=== PATIENT | male | born 1955 | race Hispanic/Latino ===

== ENCOUNTER 2018-11-24 17:48 | Inpatient (IN) | payer OTHER ==
--- NOTE | 2018-11-24 18:48 | ED PDOC ---
HPI: Chest Pain Time Seen by Provider: 11/24/18 18:02 Chief Complaint (Nursing): Chest Pain Additional Complaint(s): 63 year old male with no significant past medical history presents to the ED w ith midsternal chest tightness for several hours. Patient reports that he has been found to be hypertensive on previous visits, but is not on any hypertension medications. He states pain is nonradiating and not associated with shortness of breath or diaphoresis. Patient has a history of anxiety, but reports current symptoms feel different. His father and uncle both of heart attack in their early 60s. Patient denies any toxic habits. PMD: none provided Past Medical History Reviewed: Historical Data, Nursing Documentation, Vital Signs Vital Signs: Last Vital Signs Temp 98.4 F 11/24/18 17:53 Pulse 85 11/24/18 17:53 Resp 20 11/24/18 17:53 BP 170/97 H 11/24/18 18:20 Pulse Ox 98 11/24/18 17:53 - Medical History PMH: Anxiety Denies: Chronic Kidney Disease - Family History Family History: States: [place] - Home Medications Home Medications: Ambulatory Orders Medication Instructions Recorded No Known Home Med 11/24/18 - Allergies Allergies/Adverse Reactions: Allergies Allergy/AdvReac Type Severity Reaction Status Date / Time No Known Allergies Allergy Verified 11/24/18 17:52 Review of Systems ROS Statement: Except As Marked, All Systems Reviewed And Found Negative Constitutional: Negative for: Sweats Cardiovascular: Positive for: Chest Pain Respiratory: Negative for: Shortness of Breath Physical Exam - Reviewed Nursing Documentation Reviewed: Yes Vital Signs Reviewed: Yes - Physical Exam Appears: Positive for: Non-toxic, No Acute Distress Head Exam: Positive for: ATRAUMATIC, NORMOCEPHALIC Skin: Positive for: Normal Color, Warm, Dry Eye Exam: Positive for: EOMI, Normal appearance, PERRL Neck: Positive for: Normal Cardiovascular/Chest: Positive for: Regular Rate, Rhythm. Negative for: Murmur Respiratory: Positive for: Normal Breath Sounds. Negative for: Respiratory Distress Gastrointestinal/Abdominal: Positive for: Normal Exam, Soft. Negative for: Te nderness Back: Positive for: Normal Inspection Extremity: Positive for: Normal ROM (upper and lower). Negative for: Pedal Edema, Deformity Neurological/Psych: Positive for: Awake, Alert, Oriented (x3) - Laboratory Results Result Diagrams: 11/25/18 04:30 11/25/18 04:30 - ECG ECG Rhythm: Positive for: Sinus Rhythm (normal), Premature Ventricular Contraction (Runs of PVC seen on filter press tender head ) Rate: 83 O2 Sat by Pulse Oximetry: 98 (RA) Pulse Ox Interpretation: Normal Medical Decision Making Medical Decision Making: Time: 1819 Workup for chest pain with PVC Plan: --Labs with troponin --CXR --reassess patient Time: 1899 --Patient signed out to Dr. Armijo by this provider pending Cardiac workup. Scribe Attestation: Documented by Nika Saunders, acting as a scribe for Mecca Trevizo MD. Provider Scribe Attestation: All medical record entries made by the Scribe were at my direction and personally dictated by me. I have reviewed the chart and agree that the record accurately reflects my personal performance of the history, physical exam, medical decision making, and the department course for this patient. I have also personally directed, reviewed, and agree with the discharge instructions and disposition. Disposition - Clinical Impression Clinical Impression: Chest pain - Disposition Disposition: Transfer of Care Disposition Time: 19:00 Condition: FAIR
[2018-11-24 18:54] LABS: VENOUS BLOOD GAS BASE EXCESS 1.7 mmol/L (0.0-2.0); VENOUS BLOOD GAS PCO2 42 mmHg (40-60); VENOUS BLOOD GAS PO2 37 mm/Hg (30-55); VENOUS BLOOD PH 7.41 (7.32-7.43)
[2018-11-24 18:55] LABS: BASO # 0.1 K/uL (0.0-0.2); BASO % 0.6 % (0.0-2.0); EOS # 0.1 K/uL (0.0-0.7); EOS % 0.8 % (0.0-4.0); HEMOGLOBIN 16.4 g/dL (12.0-18.0); LYMPH % 34.5 % (20.0-40.0); MEAN CELL VOLUME 91.4 fl (80.0-94.0); MEAN CORPUSCULAR HEMOGLOBIN 31.3 pg (27.0-31.0); MEAN CORPUSCULAR HGB CONC 34.3 g/dL (33.0-37.0); MEAN PLATELET VOLUME 9.7 fl (7.2-11.7); MONO # 0.6 K/uL (0.0-0.8); MONO % 7.2 % (0.0-10.0); NEUT % 56.9 % (50.0-75.0); NRBC % 0.1 % (0.0-0.0); RBC 5.24 Mil/uL (4.40-5.90); RED CELL DISTRIBUTION WIDTH 13.8 % (11.5-14.5); WHITE BLOOD COUNT 8.8 K/uL (4.8-10.8)
[2018-11-24 18:56] LABS: INR 0.9; PROTHROMBIN TIME 10.2 Seconds (9.8-13.1)
[2018-11-24 18:58] LABS: PARTIAL THROMBOPLASTIN TIME 32.9 Seconds (25.6-37.1)
[2018-11-24 19:07] LABS: BLOOD UREA NITROGEN 12 mg/dl (9-20); CALCIUM 9.7 mg/dL (8.4-10.2); GFR NON-AFRICAN AMERICAN > 60
--- NOTE | 2018-11-24 19:11 | ED PDOC ---
- Laboratory Results Result Diagrams: 11/24/18 18:47 11/24/18 18:47 Lab Results: pO2 37 mm/Hg (30-55) 11/24/18 18:42 VBG pH 7.41 (7.32-7.43) 11/24/18 18:42 VBG pCO2 42 mmHg (40-60) 11/24/18 18:42 VBG HCO3 25.5 mmol/L 11/24/18 18:42 VBG Total CO2 27.9 mmol/L (22-28) 11/24/18 18:42 VBG O2 Sat (Calc) 78.4 % (40-65) H 11/24/18 18:42 VBG Base Excess 1.7 mmol/L (0.0-2.0) 11/24/18 18:42 VBG Potassium 4.2 mmol/L (3.6-5.2) 11/24/18 18:42 Sodium 138.0 mmol/L (132-148) 11/24/18 18:42 Chloride 107.0 mmol/L (98-107) 11/24/18 18:42 Glucose 101 mg/dL (75-110) 11/24/18 18:42 Lactate 0.9 mmol/L (0.7-2.1) 11/24/18 18:42 FiO2 21.0 % 11/24/18 18:42 PT 10.2 Seconds (9.8-13.1) 11/24/18 18:47 INR 0.9 11/24/18 18:47 APTT 32.9 Seconds (25.6-37.1) 11/24/18 18:47 - ECG O2 Sat by Pulse Oximetry: 98 (RA) Medical Decision Making Medical Decision Making: Time: 1899 --Patient signed out to this provider by Dr. Trevizo, pending Cardiac workup. Time: 1944 --Patient re-evaluated at bedside, states he's feeling much improved. States he took ASA 162mg today. Given family history of DC in 50s/60s, age, and symptoms, will place in OBS Tele for continuous cardiac monitoring, serial EKGs, and further workup as warranted by inpatient team. Dr. Branch aware. Scribe Attestation: Documented by Nika Saunders, acting as a scribe for Alfredo Armijo MD. Provider Scribe Attestation: All medical record entries made by the Scribe were at my direction and personally dictated by me. I have reviewed the chart and agree that the record accurately reflects my personal performance of the history, physical exam, medical decision making, and the department course for this patient. I have also personally directed, reviewed, and agree with the discharge instructions and disposition. Disposition - Clinical Impression Clinical Impression: Chest pain - POA Present On Arrival: None - Disposition Disposition: Hospitalized as Observation Patient Disposition Time: 19:45 Condition: FAIR Forms: [employer] (Gabonese)
--- NOTE | 2018-11-24 19:59 | RAD ---
Date of service: 11/24/2018 HISTORY: possible admission COMPARISON: No prior. FINDINGS: LUNGS: No active pulmonary disease. PLEURA: No significant pleural effusion identified, no pneumothorax apparent. CARDIOVASCULAR: No aortic atherosclerotic calcification present. Normal cardiac size. No pulmonary vascular congestion. OSSEOUS STRUCTURES: No significant abnormalities. VISUALIZED UPPER ABDOMEN: Normal. OTHER FINDINGS: None. IMPRESSION: No active disease.
--- NOTE | 2018-11-24 23:22 | CP.PCM.PCO ---
Physician Communication Note - Physician Communication Note Physician Communication Note: EKG on floor. Pt has intermittent PVCs
[2018-11-25 04:54] VITALS: BMI 24.1
[2018-11-25 06:02] LABS: BASO % 0.5 % (0.0-2.0); EOS # 0.1 K/uL (0.0-0.7); EOS % 1.1 % (0.0-4.0); HEMOGLOBIN 15.5 g/dL (12.0-18.0); LYMPH # 3.7 K/uL (1.0-4.3); LYMPH % 49.1 % (20.0-40.0); MEAN CELL VOLUME 92.1 fl (80.0-94.0); MEAN CORPUSCULAR HEMOGLOBIN 31.5 pg (27.0-31.0); MEAN CORPUSCULAR HGB CONC 34.2 g/dL (33.0-37.0); MEAN PLATELET VOLUME 9.9 fl (7.2-11.7); MONO # 0.6 K/uL (0.0-0.8); MONO % 8.3 % (0.0-10.0); NEUT # 3.1 K/uL (1.8-7.0); NRBC % 0.2 % (0.0-0.0); RBC 4.91 Mil/uL (4.40-5.90); RED CELL DISTRIBUTION WIDTH 13.8 % (11.5-14.5); WHITE BLOOD COUNT 7.4 K/uL (4.8-10.8)
[2018-11-25 06:20] LABS: ALB/GLOB RATIO 1.5 (1.0-2.1); ALBUMIN 3.8 g/dL (3.5-5.0); ALT/SGPT 31 U/L (21-72); AST/SGOT 22 U/L (17-59); BLOOD UREA NITROGEN 12 mg/dl (9-20); CALCIUM 9.2 mg/dL (8.4-10.2); GFR NON-AFRICAN AMERICAN > 60; HDL CHOLESTEROL 42 MG/DL (30-70)
[2018-11-25 06:31] LABS: LDL CHOLESTEROL 98 mg/dL (0-129)
[2018-11-25] MEDS: Enoxaparin 40 mg Syringe SC SCH (08:42)
--- NOTE | 2018-11-25 10:26 | HP ---
CHIEF COMPLAINT: Chest pain. HISTORY OF PRESENT ILLNESS: This is 63-year-old male, known case of anxiety, was having chest pain, so the patient was taken to the emergency room and was admitted for further management. REVIEW OF SYSTEMS: Positive at the time of admission of his chest pain. Review of system at this time is negative for arthritis, dizziness, syncope, loss of consciousness, chest pain, shortness of breath, nausea, vomiting, diarrhea, and constipation, any knee joint or extremity pain. Review of systems of all other organ system is unremarkable. PAST MEDICAL HISTORY: Significant for anxiety. PAST SURGICAL HISTORY: Unremarkable. PERSONAL HISTORY: The patient is currently nonsmoker. Nondrinker. No substance abuse. MEDICATIONS: The patient is on no medication. ALLERGIES: THE PATIENT IS NOT ALLERGIC TO ANY MEDICATIONS. FAMILY HISTORY: Noncontributory. PHYSICAL EXAMINATION: GENERAL: Well-built, well-nourished 63-year-old male, in no acute distress. VITAL SIGNS: Temperature 97.5, pulse 63, respiration 18, blood pressure 129/80, saturation is 96%. HEENT: Pupils are reacting to light. No JVD. No thyromegaly. No lymphadenopathy. No nystagmus. Normocephalic, atraumatic skull. HEART: S1 and S2, normal and regular. No significant murmur, gallop, or rub is heard. LUNGS: Shows good bilateral air exchange. No rales or rhonchi. ABDOMEN: Soft and nontender. No organomegaly. No fluid. Bowel sounds are plus and normal. EXTREMITY: No edema. No calf swelling. No tenderness. No acute ischemia. CENTRAL NERVOUS SYSTEM: Essentially unchanged and there is no sign of any acute gross focal motor or sensory or neurological deficits. DIAGNOSTIC DATA: Available diagnostic data reviewed. WBC 7.4, hemoglobin 15.5, hematocrit 45.6, platelets 137. Sodium 141, potassium 4.2, chloride 108, bicarb 25, BUN 12, creatinine 0.8. SMA-12 is unremarkable. EKG does not reveal any acute ST-T changes. Chest x-ray is clear. ADMITTING IMPRESSION AND PLAN: Chest pain, rule out acute coronary artery syndrome, anxiety. Plan as ordered. Case and plan discussed with patient. Gabe Branch MD
--- NOTE | 2018-11-25 11:20 | CP.PCM.CON ---
History of Present Illness - History of Present Illness History of Present Illness: PT ADMITTED WITH CP EPISODE X 1. PT STATES THAT HE STARTED HAVING CP YESTERDAY WHILE AT HOME. HE DOESN'T RECALL WHAT INCITED THE PAIN. THIS CAME ON GRADUALLY AND LASTED SEVERAL HOURS. PT FELT PALPITATIONS AND DIZZINESS DURING THIS TIME. NO TREMORS, NO NAUSEA, NO ABD PAIN, NO SOB. PT STATES THE CP WAS PRESSURE LIKE, SEVERE 8/10 AT MAX, SUBSTERNAL, NONRADIATING, NOT ASSOCIATED WITH ANY EXAC. OR ALLEVIATING FACTORS. PT HAS A HX OF HTN WHICH HE HAS NOT SOUGHT TREATMENT. ALSO HE HAS A STRONG FAM HX OF CAD AND IS A TOBACCO USER. Review of Systems - Constitutional Constitutional: As Per HPI. absent: Anorexia, Chills, Daytime Sleepiness, Excessive Sweating, Fatigue, Fever, Frequent Falls, Headache, Increased Appetite, Lethargy, Malaise, Night Sweats, Snoring, Sleep Apnea, Weight Gain, Weight Loss, Weakness, Other - EENT Eyes: As Per HPI. absent: Blind Spots, Blurred Vision, Change in Vision, Decreased Night Vision, Diplopia, Discharge, Dry Eye, Exophthalmos, Floaters, Irritation, Itchy Eyes, Loss of Peripheral Vision, Pain, Photophobia, Requires Corrective Lenses, Sees Flashes, Spots in Vision, Tunnel Vision, Other Visual Disturbances, Loss of Vision, Other Ears: As Per HPI. absent: Decreased Hearing, Ear Discharge, Ear Pain, Tinnitus, Abnormal Hearing, Disequilibrium, Dizziness, Other Nose/Mouth/Throat: As Per HPI. absent: Epistaxis, Nasal Congestion, Nasal Discharge, Nasal Obstruction, Nasal Trauma, Nose Pain, Post Nasal Drip, Sinus Pain, Sinus Pressure, Bleeding Gums, Change in Voice, Dental Pain, Dry Mouth, Dysphagia, Halitosis, Hoarsness, Lip Swelling, Mouth Lesions, Mouth Pain, Odynophagia, Sore Throat, Throat Swelling, Tongue Swelling, Facial Pain, Neck Pain, Neck Mass, Other - Cardiovascular Cardiovascular: As Per HPI, Chest Pain, Lightheadedness, Palpitations. absent: Acrocyanosis, Chest Pain at Rest, Chest Pain with Activity, Claudication, Diaphoresis, Dyspnea, Dyspnea on Exertion, Edema, Irregular Heart Rhythm, Pain Radiating to Arm/Neck/Jaw, Leg Edema, Leg Ulcers, Orthopnea, Paroxysmal Nocturnal Dyspnea, Pedal Edema, Radiating Pain, Rapid Heart Rate, Slow Heart Rate, Syncope, Other - Respiratory Respiratory: As Per HPI. absent: Cough, Dyspnea, Hemoptysis, Dyspnea on Exertion, Wheezing, Snoring, Stridor, Pain on Inspiration, Chest Congestion, Excessive Mucous Production, Change in Mucous Color, Pain with Coughing, Other - Gastrointestinal Gastrointestinal: As Per HPI. absent: Abdominal Pain, Belching, Bloating, Change in Bowel Habits, Change in Stool Character, Coffee Ground Emesis, Constipation, Cramping, Diarrhea, Dyspepsia, Dysphagia, Early Satiety, Excessive Flatus, Fecal Incontinence, Heartburn, Hematemesis, Hematochezia, Loose Stools, Melena, Nausea, Odynophagia, Temesmus, Vomiting, Other - Genitourinary Genitourinary: As Per HPI. absent: Change in Urinary Stream, Difficulty Urinating, Dysuria, Flank Pain, Hematuria, Pyuria, Nocturia, Urinary Incontinence, Urinary Frequency, Urinary Hesitance, Urinary Urgency, Voiding Freq/Small Amts, Freq UTI, Hx Renal/Bladder Calculi, Hx /Renal Surgery, Bladder Distension, Other - Reproductive: Male Reproductive:Male: As Per HPI - Musculoskeletal Musculoskeletal: As Per HPI. absent: Abnormal Gait, Arthralgias, Atrophy, Back Pain, Deformity, Joint Swelling, Limited Range of Motion, Loss of Height, Muscle Cramps, Muscle Weakness, Myalgias, Neck Pain, Numbness, Radiating Pain into Limb, Stiffness, Tingling, Other - Integumentary Integumentary: As Per HPI. absent: Acne, Alopecia, Bleeding Lesions, Change in Hair, Change in Nails, Change in Pigmentation, Changing Lesions, Dry Skin, Erythema, Furuncle, Hirsutism, Lesions, New Lesions, Non-Healing Lesions, Photosensitivity, Pruritus, Rash, Skin Pain, Skin Ulcer, Sores, Striae, Swelling, Unusual Bruising, Wounds, Jaundice, Other - Neurological Neurological: As Per HPI. absent: Abnormal Gait, Abnormal Hearing, Abnormal Movements, Abnormal Speech, Behavioral Changes, Burning Sensations, Confusion, Convulsions, Disequilibrium, Dizziness, Numbness, Focal Weakness, Frequent Falls, Headaches, Lack of Coordination, Loss of Vision, Memory Loss, Paresthesias, Radicular Pain, Restless Legs, Sensory Deficit, Syncope, Tingling, Tremor, Vertigo, Weakness, Other Visual Disturbances, Other - Psychiatric Psychiatric: As Per HPI. absent: Abnormal Sleep Pattern, Anhedonia, Anxiety, Auditory Hallucinations, Behavioral Changes, Change in Appetite, Change in Libido, Confusion, Depression, Difficulty Concentrating, Hallucinations, Homicidal Ideation, Hopelessness, Irritability, Memory Loss, Mood Swings, Panic Attacks, Paranoia, Suicidal Ideation, Visual Hallucinations, Tactile Hallucinations, Other - Endocrine Endocrine: As Per HPI. absent: Change in Body Appearance, Change in Libido, Cold Intolorance, Deepening of Voice, Excessive Sweating, Fatigue, Flushing, Heat Intolorance, Increase in Ring/Shoe/Hat Size, Palpitations, Polydipsia, Polyphagia, Polyuria, Other - Hematologic/Lymphatic Hematologic: As Per HPI. absent: Easy Bleeding, Easy Bruising, Lymphadenopathy, Other Past Patient History - Past Medical History & Family History Past Medical History?: No - Past Social History Smoking Status: Current Some Days Smoker Chewing Tobacco Use: No Cigar Use: No Alcohol: > 2 Drinks/Day Drugs: Denies Home Situation {Lives}: Alone Domestic Violence: Negative - CARDIAC Hx Cardiac Disorders: No - PULMONARY Hx Respiratory Disorders: No - NEUROLOGICAL Hx Neurological Disorder: No - HEENT Hx HEENT Problems: No - RENAL Hx Chronic Kidney Disease: No - ENDOCRINE/METABOLIC Hx Endocrine Disorders: No - HEMATOLOGICAL/ONCOLOGICAL Hx Blood Disorders: No Hx AIDS: No Hx Human Immunodeficiency Virus (HIV): No - INTEGUMENTARY Hx Dermatological Problems: No - MUSCULOSKELETAL/RHEUMATOLOGICAL Hx Musculoskeletal Disorders: No Hx Falls: No - GASTROINTESTINAL Hx Gastrointestinal Disorders: No - GENITOURINARY/GYNECOLOGICAL Hx Genitourinary Disorders: No - PSYCHIATRIC Hx Psychophysiologic Disorder: No Hx Substance Use: No - SURGICAL HISTORY Hx Surgeries: No - ANESTHESIA Hx Anesthesia: No Meds Allergies/Adverse Reactions: Allergies Allergy/AdvReac Type Severity Reaction Status Date / Time No Known Allergies Allergy Verified 11/24/18 17:52 - Medications Medications: Current Medications Aspirin (Aspirin Chewable) 81 mg PO DAILY [facility] Last Admin: 11/25/18 11:04 Dose: 81 mg Enoxaparin Sodium (Lovenox) 40 mg SC DAILY [facility]; Protocol Last Admin: 11/25/18 08:42 Dose: 40 mg Physical Exam - Constitutional Appears: Non-toxic - Head Exam Head Exam: ATRAUMATIC, NORMAL INSPECTION, NORMOCEPHALIC - Eye Exam Eye Exam: EOMI, Normal appearance, PERRL. absent: Conjunctival injection, Nystagmus, Periorbital swelling, Periorbital tenderness, Scleral icterus Pupil Exam: NORMAL ACCOMODATION, PERRL. absent: Fixed, Irregular, Miosis, Mydriatic, Unequal - ENT Exam ENT Exam: Mucous Membranes Moist, Normal Exam. absent: Mucous Membranes Dry, Normal External Ear Exam, Normal Oropharynx, TM's Normal Bilaterally - Neck Exam Neck exam: Positive for: Normal Inspection. Negative for: Full Rom, Lymphadenopathy, Meningismus, Tenderness, Thyromegaly - Respiratory Exam Respiratory Exam: Clear to Auscultation Bilateral, NORMAL BREATHING PATTERN. absent: Accessory Muscle Use, Chest Wall Tenderness, Decreased Breath Sounds, Prolonged Expiratory Phase, Rales, Rhonchi, Wheezes, Respiratory Distress, St ridor - Cardiovascular Exam Cardiovascular Exam: REGULAR RHYTHM, +S1, +S2, Systolic Murmur. absent: Bradycardia, Tachycardia, Clicks, Diastolic murmur, Gallop, Irregular Rhythm, JVD, RRR, Rubs, +S4 - GI/Abdominal Exam GI & Abdominal Exam: Normal Bowel Sounds, Soft. absent: Bruit, Diminished Bowel Sounds, Distended, Firm, Guarding, Hernia, Hyperactive Bowel Sounds, Hypoactive Bowel Sounds, Mass, Organomegaly, Pulsatile Mass, Rebound, Rigid, Tenderness - Rectal Exam Rectal Exam: Deferred - Extremities Exam Extremities exam: Positive for: normal inspection, pedal pulses present. Negative for: calf tenderness, full ROM, joint swelling, normal capillary refill, pedal edema, tenderness - Back Exam Back exam: NORMAL INSPECTION. absent: CVA tenderness (L), CVA tenderness (R), FULL ROM, muscle spasm, paraspinal tenderness, rash noted, tenderness, vertebral tenderness - Neurological Exam Neurological exam: Alert, CN II-XII Intact, Normal Gait, Oriented x3, Reflexes Normal - Psychiatric Exam Psychiatric exam: Normal Affect, Normal Mood - Skin Skin Exam: Dry, Intact, Normal Color, Warm Results - Vital Signs Recent Vital Signs: Last Vital Signs Temp 97.3 F L 11/25/18 08:19 Pulse 65 11/25/18 08:19 Resp 18 11/25/18 08:19 BP 138/89 11/25/18 08:19 Pulse Ox 97 11/25/18 08:19 - Labs Result Diagrams: 11/25/18 04:30 11/26/18 05:00 Labs: Laboratory Results - last 24 hr 11/24/18 11/24/18 11/24/18 18:42 18:47 18:47 WBC 8.8 RBC 5.24 Hgb 16.4 Hct 47.9 MCV 91.4 MCH 31.3 H MCHC 34.3 RDW 13.8 Plt Count 146 MPV 9.7 Neut % (Auto) 56.9 Lymph % (Auto) 34.5 [place] % (Auto) 7.2 Eos % (Auto) 0.8 Baso % (Auto) 0.6 Neut # (Auto) 5.0 Lymph # (Auto) 3.0 [place] # (Auto) 0.6 Eos # (Auto) 0.1 Baso # (Auto) 0.1 PT INR APTT pO2 37 VBG pH 7.41 VBG pCO2 42 VBG HCO3 25.5 VBG Total CO2 27.9 VBG O2 Sat (Calc) 78.4 H VBG Base Excess 1.7 VBG Potassium 4.2 Sodium 138.0 142 Chloride 107.0 106 Glucose 101 Lactate 0.9 FiO2 21.0 Potassium 4.3 Carbon Dioxide 26 Anion Gap 14 BUN 12 Creatinine 0.7 L Est GFR ( Amer) > 60 Est GFR (Non-Af Amer) > 60 Random Glucose 100 Calcium 9.7 Phosphorus Total Bilirubin AST ALT Alkaline Phosphatase Troponin I < 0.0120 Total Protein Albumin Globulin Albumin/Globulin Ratio Triglycerides Cholesterol LDL Cholesterol Direct HDL Cholesterol Vitamin B12 TSH 3rd Generation Venous Blood Potassium 4.2 11/24/18 11/25/18 11/25/18 18:47 04:30 04:30 WBC 7.4 RBC 4.91 Hgb 15.5 Hct 45.3 MCV 92.1 MCH 31.5 H MCHC 34.2 RDW 13.8 Plt Count 137 MPV 9.9 Neut % (Auto) 41.0 L Lymph % (Auto) 49.1 H [place] % (Auto) 8.3 Eos % (Auto) 1.1 Baso % (Auto) 0.5 Neut # (Auto) 3.1 Lymph # (Auto) 3.7 [place] # (Auto) 0.6 Eos # (Auto) 0.1 Baso # (Auto) 0.0 PT 10.2 INR 0.9 APTT 32.9 pO2 VBG pH VBG pCO2 VBG HCO3 VBG Total CO2 VBG O2 Sat (Calc) VBG Base Excess VBG Potassium Sodium 141 Chloride 108 H Glucose Lactate FiO2 Potassium 4.2 Carbon Dioxide 25 Anion Gap 12 BUN 12 Creatinine 0.8 Est GFR ( Amer) > 60 Est GFR (Non-Af Amer) > 60 Random Glucose 89 Calcium 9.2 Phosphorus 3.4 Total Bilirubin 0.6 AST 22 ALT 31 Alkaline Phosphatase 50 Troponin I Total Protein 6.4 Albumin 3.8 Globulin 2.6 Albumin/Globulin Ratio 1.5 Triglycerides 101 Cholesterol 155 LDL Cholesterol Direct 98 HDL Cholesterol 42 Vitamin B12 398 TSH 3rd Generation 3.18 Venous Blood Potassium 11/25/18 04:30 WBC RBC Hgb Hct MCV MCH MCHC RDW Plt Count MPV Neut % (Auto) Lymph % (Auto) [place] % (Auto) Eos % (Auto) Baso % (Auto) Neut # (Auto) Lymph # (Auto) [place] # (Auto) Eos # (Auto) Baso # (Auto) PT INR APTT pO2 VBG pH VBG pCO2 VBG HCO3 VBG Total CO2 VBG O2 Sat (Calc) VBG Base Excess VBG Potassium Sodium Chloride Glucose Lactate FiO2 Potassium Carbon Dioxide Anion Gap BUN Creatinine Est GFR ( Amer) Est GFR (Non-Af Amer) Random Glucose Calcium Phosphorus Total Bilirubin AST ALT Alkaline Phosphatase Troponin I < 0.0120 Total Protein Albumin Globulin Albumin/Globulin Ratio Triglycerides Cholesterol LDL Cholesterol Direct HDL Cholesterol Vitamin B12 TSH 3rd Generation Venous Blood Potassium Assessment & Plan (1) HTN (hypertension) Status: Acute (2) Family history of coronary artery disease Status: Acute (3) Tobacco abuse Status: Acute (4) ETOH abuse Status: Acute (5) Anxiety Status: Acute (6) Chest pain Status: Acute (7) Ventricular bigeminy Status: Acute - Assessment and Plan (Free Text) Plan: CA RULED OUT st and echo in am asa 81 mag and bb given bigeminy on monitor CONT TELE ALL LABS AND EKG REVIEWED 65 MIN TOTAL CARE TIME.
[2018-11-25] MEDS ORDERED: Magnesium Sulfate 2 GM in Sodium Chloride 0.9% 100 ML IVPB ONE (17:05)
[2018-11-25] MEDS ORDERED: Magnesium Sulfate 2 gm/50 ml 2 GM/50 ML BAG IV ONE (18:00)
--- NOTE | 2018-11-25 20:07 | CARD ---
APPROVED REPORT Date of service: 11/24/2018 EKG Measurement Heart [id number] <Conclusion> Normal sinus rhythm Normal ECG
[2018-11-26 01:09] VITALS: RESP 18
[2018-11-26 05:44] LABS: BLOOD UREA NITROGEN 11 mg/dl (9-20); GFR NON-AFRICAN AMERICAN > 60
--- NOTE | 2018-11-26 09:37 | PN ---
DATE: 11/26/2018 SUBJECTIVE: The patient seen and examined. Interim events noted. Consult noted and appreciated. Radiology intervention noted and appreciated. The patient remains in progressive care unit on telemetry monitoring. The patient feels okay. Denies any chest pain or shortness of breath. PHYSICAL EXAMINATION: GENERAL: The patient is in no acute distress. VITAL SIGNS: Stable. HEART: S1 and S2, normal, regular. LUNGS: Good bilateral air exchange. ABDOMEN: Soft, nontender. EXTREMITIES: No edema. No calf swelling. No tenderness. No acute ischemia. CENTRAL NERVOUS SYSTEM: Essentially unchanged. DIAGNOSTIC DATA: Available diagnostic data reviewed. Troponin 3 sets are negative. Telemetry monitoring does not show significant arrhythmias. The patient is stress test. ASSESSMENT AND PLAN: Plan as ordered. Case and plan discussed with the patient. Gabe Branch MD
[2018-11-26] MEDS: Enoxaparin 40 mg Syringe SC SCH (11:31)
--- NOTE | 2018-11-26 15:04 | CP.PCM.PN ---
Subjective - Date & Time of Evaluation Date of Evaluation: 11/26/18 Time of Evaluation: 15:02 - Subjective Subjective: NO COMPLAINTS. NO PALP OR CP. TELE SHOWS DECREASED PVCS, HOWEVER STILL PRESENT. Objective - Vital Signs/Intake and Output Vital Signs (last 24 hours): Temp Pulse Resp BP Pulse Ox 98.2 F 55 L 18 129/93 H 96 11/26/18 14:06 11/26/18 14:06 11/26/18 11:49 11/26/18 14:06 11/26/18 11:49 - Medications Medications: Current Medications Aspirin (Aspirin Chewable) 81 mg PO DAILY [facility] Last Admin: 11/26/18 11:31 Dose: 81 mg Enoxaparin Sodium (Lovenox) 40 mg SC DAILY [facility]; Protocol Last Admin: 11/26/18 11:31 Dose: 40 mg Metoprolol Tartrate (Lopressor) 12.5 mg PO Q6 [facility] Last Admin: 11/26/18 11:37 Dose: Not Given - Labs Labs: 11/25/18 04:30 11/26/18 05:00 PT 10.2 Seconds (9.8-13.1) 11/24/18 18:47 INR 0.9 11/24/18 18:47 APTT 32.9 Seconds (25.6-37.1) 11/24/18 18:47 - Constitutional Appears: Well - Head Exam Head Exam: ATRAUMATIC, NORMAL INSPECTION, NORMOCEPHALIC - Eye Exam Eye Exam: EOMI, Normal appearance, PERRL. absent: Conjunctival injection, Nystagmus, Periorbital swelling, Periorbital tenderness, Scleral icterus Pupil Exam: NORMAL ACCOMODATION, PERRL - ENT Exam ENT Exam: Mucous Membranes Moist, Normal Exam. absent: Mucous Membranes Dry, Normal External Ear Exam, Normal Oropharynx, TM's Normal Bilaterally - Neck Exam Neck Exam: Full ROM, Normal Inspection. absent: Lymphadenopathy, Meningismus, Tenderness, Thyromegaly - Respiratory Exam Respiratory Exam: Clear to Ausculation Bilateral, NORMAL BREATHING PATTERN. absent: Accessory Muscle Use, Chest Wall Tenderness, Decreased Breath Sounds, Prolonged Expiratory Phase, Rales, Rhonchi, Wheezes, Respiratory Distress, Stridor - Cardiovascular Exam Cardiovascular Exam: REGULAR RHYTHM, +S1, +S2, Murmur. absent: Bradycardia, Tachycardia, Clicks, Diastolic murmur, Gallop, Irregular Rhythm, JVD, RRR, Rubs, +S4 - GI/Abdominal Exam GI & Abdominal Exam: Soft, Normal Bowel Sounds. absent: Bruit, Distended, Firm, Guarding, Rigid, Tenderness, Diminished Bowel Sounds, Hernia, Hyperactive Bowel Sounds, Hypoactive Bowel Sounds, Organomegaly, Pulsatile Mass, Rebound, Mass - Rectal Exam Rectal Exam: Deferred - Extremities Exam Extremities Exam: Full ROM, Normal Capillary Refill, Normal Inspection. absent: Calf Tenderness, Joint Swelling, Pedal Edema, Tenderness - Back Exam Back Exam: NORMAL INSPECTION. absent: CVA tenderness (L), CVA tenderness (R), Full ROM, muscle spasm, paraspinal tenderness, rash noted, tenderness, vertebral tenderness - Neurological Exam Neurological Exam: Alert, Awake, CN II-XII Intact, Normal Gait, Oriented x3. absent: Abnormal Gait, Altered, Motor Sensory Deficit, Reflexes Normal - Psychiatric Exam Psychiatric exam: Normal Affect, Normal Mood. absent: Agitated, Anxious, Depressed, Flat Affect, Homicidal Ideation, Manic, Suicidal Ideation - Skin Skin Exam: Dry, Intact, Normal Color, Warm. absent: Abrasion, Cyanosis, Diaphoretic, Erythema, Mottled, Pallor, Pallor, Petechiae, Rash, Urticaria, Vesicles Assessment and Plan (1) Chest pain Status: Acute (2) Cardiomyopathy Status: Acute (3) Ventricular bigeminy Status: Acute (4) HTN (hypertension) Status: Acute (5) Family history of coronary artery disease Status: Acute (6) Tobacco abuse Status: Acute (7) ETOH abuse Status: Acute (8) Anxiety Status: Acute - Assessment and Plan (Free Text) Plan: ECHO IMAGES PERSONALLY REVIEWED. EF APPEARS 45-50%. SUCH PT NEEDS CARDIAC CATH. HIS EF MAY BE SECONDARY TO CAD VS BIGEM VS ETOH. WILL PLAN ON CATH TOMORROW AT [facility] AT 3PM. I DISCUSSED THIS AT LENGTH WITH THE PATIENT. RISKS BENEFITS AND ALTERNATIVES REVIEWED. PT AGREEABLE. HOLD AM LOVENOX. NPO AFTER BREAKFAST. 55 MIN TOTAL CARE TIME.
[2018-11-26] MEDS ORDERED: Potassium Chloride 20 mEq/15 ml LIQ UD PO ONE (15:45)
--- NOTE | 2018-11-26 20:28 | CARD ---
APPROVED REPORT Date of service: 11/26/2018 EXAM: Two-dimensional and M-mode echocardiogram with Doppler and color Doppler. Other Information Quality : GoodRhythm : NSR INDICATION Chest Pain 2D DIMENSIONS IVSd1.11 (0.7-1.1cm)LVDd4.51 (3.9-5.9cm) LVOT Diameter2.39 (1.8-2.4cm)PWd1.13 (0.7-1.1cm) IVSs1.40 (0.8-1.2cm)LVDs2.99 (2.5-4.0cm) FS (%) 33.7 %PWs1.65 (0.8-1.2cm) M-Mode DIMENSIONS Left Atrium (MM)3.47 (2.5-4.0cm)IVSd1.47 (0.7-1.1cm) Aortic Root3.29 (2.2-3.7cm)LVDd4.97 (4.0-5.6cm) Aortic Cusp Exc.1.97 (1.5-2.0cm)PWd1.21 (0.7-1.1cm) IVSs1.47 cmFS (%) 28 % LVDs3.59 (2.0-3.8cm)PWs1.32 cm Aortic Valve AoV Peak Fceqzsrj90.9cm/sAoV VTI20.8cmAO Peak GR.4mmHg LVOT Peak Dnawvycl21.8cm/sLVOT VTI18.37cmAO Mean GR.2mmHg DORENE (VMAX)1.45cz1WYK (VTI)1.92cm2 Mitral Valve MV E Qoblognq24.9cm/sMV DECEL [id number] A Rmebtedm89.7cm/s MV YHM96frP/A ratio1.2MVA (PHT)2.98cm2 TDI Lateral E' Peak V7.74cm/sMedial E' Peak V6.44cm/sE/Lateral E'7.2 E/Medial E'8.7 Tricuspid Valve TR Peak Xdmcnfjh846vf/sRAP RJQGWZDZ23elBvBE Peak Gr.11mmHg [id number] LEFT VENTRICLE The left ventricle is normal size. There is borderline concentric left ventricular hypertrophy. The left ventricular systolic function is normal. The estimated ejection fraction is 55-60% No regional wall motion abnormalities noted.. Transmitral Doppler flow pattern is Grade II-pseudonormal filling dynamics. No left ventricle thrombus noted on this study. There is no ventricular septal defect visualized. There is no left ventricular aneurysm. There is no mass noted in the left ventricle. RIGHT VENTRICLE The right ventricle is normal size. There is normal right ventricular wall thickness. The right ventricular systolic function is normal. ATRIA The left atrium size is normal. The right atrium size is normal. The interatrial septum is intact with no evidence for an atrial septal defect. AORTIC VALVE The aortic valve is normal in structure. No aortic regurgitation is present. There is no aortic valvular stenosis. There is no aortic valvular vegetation. MITRAL VALVE The mitral valve is normal in structure. There is no evidence of mitral valve prolapse. There is no mitral valve stenosis. There is mild mitral valve regurgitation noted. TRICUSPID VALVE The tricuspid valve is normal in structure. There is trace tricuspid valve regurgitation noted. RVSP is calculated at < 20 mm Hg. There is no tricuspid valve prolapse or vegetation. There is no tricuspid valve stenosis. PULMONIC VALVE The pulmonary valve is normal in structure. There is no pulmonic valvular regurgitation. There is no pulmonic valvular stenosis. GREAT VESSELS The aortic root is normal in size. The ascending aorta is normal in size. The pulmonary artery is normal. The IVC is normal in size and collapses >50% with inspiration. PERICARDIAL EFFUSION There is no pericardial effusion. There is no pleural effusion. <Conclusion> There is borderline concentric left ventricular hypertrophy. The estimated ejection fraction is 55-60% Transmitral Doppler flow pattern is Grade II-pseudonormal filling dynamics. The left atrium size is normal. There is mild mitral valve regurgitation noted. There is trace tricuspid valve regurgitation noted. RVSP is calculated at < 20 mm Hg. The IVC is normal in size and collapses >50% with inspiration.
--- NOTE | 2018-11-26 20:46 | CARD ---
APPROVED REPORT Date of service: 11/24/2018 EKG Measurement Heart [id number] <Conclusion> Sinus rhythm with sinus arrhythmia with occasional premature ventricular complexes Otherwise normal ECG
[2018-11-27 05:17] LABS: HEMOGLOBIN 15.2 g/dL (12.0-18.0); MEAN CELL VOLUME 92.3 fl (80.0-94.0); MEAN CORPUSCULAR HGB CONC 33.5 g/dL (33.0-37.0); RBC 4.92 Mil/uL (4.40-5.90); RED CELL DISTRIBUTION WIDTH 14.1 % (11.5-14.5); WHITE BLOOD COUNT 8.8 K/uL (4.8-10.8)
[2018-11-27 05:26] LABS: ALB/GLOB RATIO 1.4 (1.0-2.1); ALBUMIN 3.9 g/dL (3.5-5.0); ALT/SGPT 27 U/L (21-72); AST/SGOT 20 U/L (17-59); BLOOD UREA NITROGEN 14 mg/dl (9-20); CALCIUM 9.2 mg/dL (8.4-10.2); GFR NON-AFRICAN AMERICAN > 60
--- NOTE | 2018-11-27 07:25 | CP.PCM.PN ---
Subjective - Date & Time of Evaluation Date of Evaluation: 11/27/18 Time of Evaluation: 07:23 - Subjective Subjective: Patient seen and examined this morning with Dr. Branch. NAD, Slept well overnight/no overnight event. AAOx3, Patient denies any current chest pain, SOB, dizziness, palpitations or blurred vision. Tolerating PO NPO today for possible cardiac cath Objective - Vital Signs/Intake and Output Vital Signs (last 24 hours): Temp Pulse Resp BP Pulse Ox 98 F 60 18 138/88 97 11/27/18 05:40 11/27/18 05:40 11/27/18 05:40 11/27/18 05:40 11/27/18 05:40 - Medications Medications: Current Medications Aspirin (Aspirin Chewable) 81 mg PO DAILY [facility] Last Admin: 11/26/18 11:31 Dose: 81 mg Metoprolol Tartrate (Lopressor) 12.5 mg PO Q12 [facility] Last Admin: 11/26/18 20:56 Dose: 12.5 mg - Labs Labs: 11/27/18 04:50 11/27/18 04:50 PT 10.2 Seconds (9.8-13.1) 11/24/18 18:47 INR 0.9 11/24/18 18:47 APTT 32.9 Seconds (25.6-37.1) 11/24/18 18:47 - Constitutional Appears: No Acute Distress - Head Exam Head Exam: NORMAL INSPECTION - Eye Exam Eye Exam: Normal appearance - ENT Exam ENT Exam: Mucous Membranes Moist - Neck Exam Neck Exam: Normal Inspection - Respiratory Exam Respiratory Exam: Clear to Ausculation Bilateral, NORMAL BREATHING PATTERN - Cardiovascular Exam Cardiovascular Exam: REGULAR RHYTHM, +S1, +S2 - GI/Abdominal Exam GI & Abdominal Exam: Soft, Normal Bowel Sounds - Extremities Exam Extremities Exam: Full ROM, Normal Capillary Refill, Normal Inspection - Back Exam Back Exam: NORMAL INSPECTION - Neurological Exam Neurological Exam: Alert, Awake, CN II-XII Intact, Oriented x3 - Psychiatric Exam Psychiatric exam: Normal Affect - Skin Skin Exam: Normal Color Assessment and Plan - Assessment and Plan (Free Text) Assessment: A/P: 63 y/o M with PMH of Anxiety and HTN admitted for eval and treatment of recurrent chest pain and ventricular bigeminy. Recurrent Chest pain, ventricular bigeminy, Ruled out ACS - Consult, Cardiology, Recommendations appreciated - Echo 3/10/19: EF 40-45% - S/p Pefusion scan, f/u official results - C/w Aspirin and Metoprolol 12.5mg PO Q12 - Possible cardiac cath today as per Cardio HTN, controlled - C/w Aspirin and Metoprolol 12.5mg PO Q12 Anxiety - Controlled DVT PPX - SCD
--- NOTE | 2018-11-27 13:06 | CARD ---
APPROVED REPORT Date of service: 11/25/2018 Protocol: NINA Test Type: Stress Nuclear Medications: ASPIRIN 81MG LOVENOX 40MG LOPRESSOR 12.5 Medical History: HYPERTENSION, ANXIETY, FAMILY HX HEART ATTACK Target HR: 156 bpm Resting ECG: normal Resting Heart Rate: 57 bpm Resting Blood Pressure: 129/93mmHg submaximum (85%): 133 bpm TEST SUMMARY [id number]/93.2. [id number]/93.2. PRETESTHYPERV.00:[id number]/93.2. PRETESTWARM-UP05:[id number]/93.0. EXERCISESTAGE 103:[id number]/74.0. EXERCISESTAGE 203:[id number]/72.0. EXERCISESTAGE 300:[id number]/72.0. [id number]:[id number]/64.1. POST EXERCISE Reason for Termination: Fatigue Target HR: No Max HR: 110 bpm 71% of Maximum Predicted HR: 156 bpm Exercise duration: 06:36 min:sec, 3 Stage Exercise capacity: 7.9METs Max Blood Pressure: 148/72mmHg Blood Pressure response to exercise: normal resting BP - appropriate response Heart Rate response to exercise: appropriate Chest Pain: No, none Angina index: 0 Arrhythmia: Yes, ventricular premature beats ST Change: No, none Deviation: 0 mm Clinical Indications Under Appropriate Use Criteria Admitted with history of chest pressure on Lovenoxl. Patient with family history of heart attack Stress EKG Interpretation No significant st or t waves changes noticed. Ventriciular ectopcis seen at activities RESTING ECG Rhythm: Sinus Conduction: Incomplete RBBB Arrhythmias: VPC Repolarization: Normal STRESS ECG Rhythm: Sinus Conduction: Incomplete RBBB Arrhythmias: VPC ST-Segment changes: none EXAM: Myocardial Perfusion REST/STRESS Image QualityGood Imaging Protocol The imaging protocol used to acquire images was Rest Tc-99m/stress Tc-99m 1 day Rest Spect myocardial perfusion imaging was performed in supine position 159 minutes following the injection of 30 mCi of Tc-99 Myoview. Time of rest injection: 12:00 Time of rest imagin:34 At peak stress, the patient was injected intravenously with 10mCi of Tc-99 tetrofosmin after an infusion time of minutes and seconds. Time of stress injection: 10:00 Time of stress imagin:39 Gated Rest Spect was performed 154 minutes after intravenous Tc-99 Myoview injection. The images were gated to evaluate regional wall motion and calculate ventricular ejection fraction. NUCLEAR IMAGE INTERPRETATION Study quality was excellent. Left Ventricular size was Normal at Rest and Stress. Lung uptake was Normal. Left Ventricular ejection fraction is 81%. LV Perfusion The bulleye images are normal however there is a perfusion reversible defect on the inferior wall of the left ventricle. LV Perfusion 1 Perfusion Defect Location: inferior Perfusion Defect Size: Small (1-2 segments) Perfusion Defect Severity: Moderate Type of Perfusion Defect: Reversible Wall Motion Normal wall motion CONCLUSION 1. Abnormal stress test due to ventricular ectopcis at exercises. No st or t waves changes were noticed. 2. Perfusion defect noticed on the inferior wall of the left ventricle suugerstive of concealed myocardial ischemia Recommendation Furtehr studies recommended
--- NOTE | 2018-11-27 16:44 | CP.PCM.PN ---
Subjective - Date & Time of Evaluation Date of Evaluation: 11/27/18 Time of Evaluation: 16:14 - Subjective Subjective: no cp or palp today. less bigeminy on tele. Objective - Vital Signs/Intake and Output Vital Signs (last 24 hours): Temp Pulse Resp BP Pulse Ox 97.6 F 52 L 18 132/80 94 L 11/27/18 12:00 11/27/18 12:00 11/27/18 12:00 11/27/18 12:00 11/27/18 12:00 - Medications Medications: Current Medications Aspirin (Aspirin Chewable) 81 mg PO DAILY [facility] Last Admin: 11/27/18 09:16 Dose: Not Given Metoprolol Tartrate (Lopressor) 12.5 mg PO Q12 [facility] Last Admin: 11/27/18 09:13 Dose: 12.5 mg - Labs Labs: 11/27/18 04:50 11/27/18 04:50 PT 10.2 Seconds (9.8-13.1) 11/24/18 18:47 INR 0.9 11/24/18 18:47 APTT 32.9 Seconds (25.6-37.1) 11/24/18 18:47 - Constitutional Appears: Well - Head Exam Head Exam: ATRAUMATIC, NORMAL INSPECTION, NORMOCEPHALIC - Eye Exam Eye Exam: EOMI, Normal appearance, PERRL. absent: Conjunctival injection, Nystagmus, Periorbital swelling, Periorbital tenderness, Scleral icterus Pupil Exam: NORMAL ACCOMODATION, PERRL - ENT Exam ENT Exam: Mucous Membranes Moist, Normal Exam. absent: Mucous Membranes Dry, Normal External Ear Exam, Normal Oropharynx, TM's Normal Bilaterally - Neck Exam Neck Exam: Full ROM, Normal Inspection. absent: Lymphadenopathy - Respiratory Exam Respiratory Exam: Clear to Ausculation Bilateral, NORMAL BREATHING PATTERN. absent: Accessory Muscle Use, Chest Wall Tenderness, Decreased Breath Sounds, Prolonged Expiratory Phase, Rales, Rhonchi, Wheezes, Respiratory Distress, Stridor - Cardiovascular Exam Cardiovascular Exam: REGULAR RHYTHM, +S1, +S2, Murmur. absent: Bradycardia, Tachycardia, Clicks, Diastolic murmur, Gallop, Irregular Rhythm, JVD, RRR, Rubs, +S4 - GI/Abdominal Exam GI & Abdominal Exam: Soft, Normal Bowel Sounds. absent: Bruit, Distended, Firm, Guarding, Rigid, Tenderness, Diminished Bowel Sounds, Hernia, Hyperactive Bowel Sounds, Hypoactive Bowel Sounds, Organomegaly, Pulsatile Mass, Rebound, Mass - Rectal Exam Rectal Exam: Deferred - Extremities Exam Extremities Exam: Full ROM, Normal Capillary Refill, Normal Inspection. absent: Calf Tenderness, Joint Swelling, Pedal Edema, Tenderness - Back Exam Back Exam: NORMAL INSPECTION. absent: CVA tenderness (L), CVA tenderness (R), Full ROM, muscle spasm, paraspinal tenderness, rash noted, tenderness, vertebral tenderness - Neurological Exam Neurological Exam: Alert, Awake, CN II-XII Intact, Normal Gait, Oriented x3. absent: Abnormal Gait, Altered, Motor Sensory Deficit, Reflexes Normal - Psychiatric Exam Psychiatric exam: Normal Affect, Normal Mood. absent: Agitated, Anxious, Depressed, Flat Affect, Homicidal Ideation, Manic, Suicidal Ideation - Skin Skin Exam: Dry, Intact, Normal Color, Warm. absent: Abrasion, Cyanosis, Diaphoretic, Erythema, Mottled, Pallor, Pallor, Petechiae, Rash, Urticaria, Vesicles Assessment and Plan (1) HTN (hypertension) Status: Acute (2) Family history of coronary artery disease Status: Acute (3) Tobacco abuse Status: Acute (4) ETOH abuse Status: Acute (5) Anxiety Status: Acute (6) Chest pain Status: Acute (7) Ventricular bigeminy Status: Acute - Assessment and Plan (Free Text) Plan: informed written consent obtained. cath performed. no CAD. pt likely has mild DCM due to etoh use and or arrythmia. stop asa. start low dose acei and cont low dose metoprolol. cath tolerated well. f/u in office in 1 week.
[2018-11-28 08:22] VITALS: BP 143/91; TEMP 97.7; O2SAT 98
--- NOTE | 2018-11-28 09:21 | CP.PCM.DIS ---
Provider - Provider Date of Admission: 11/26/18 15:33 Attending physician: Gabe Branch MD Primary care physician: None Consults: 11/24/18 22:09 Cardiology Consult Routine Comment: Consulting Provider: Nery Abraham Consulting Physician: Nery Abraham Reason for Consult: chest pain 11/25/18 04:50 Pastoral Care Referral Routine Comment: Physician Instructions: Reason For Exam: requests info on advance directive Time Spent in preparation of Discharge (in minutes): 40 Diagnosis - Discharge Diagnosis (1) Dilated cardiomyopathy Status: Chronic (2) Arrhythmia Status: Chronic (3) Alcohol abuse Status: Chronic (4) Anxiety Status: Chronic Hospital Course - Lab Results Lab Results: Most Recent Lab Values WBC 8.8 K/uL (4.8-10.8) 11/27/18 04:50 RBC 4.92 Mil/uL (4.40-5.90) 11/27/18 04:50 Hgb 15.2 g/dL (12.0-18.0) 11/27/18 04:50 Hct 45.4 % (35.0-51.0) 11/27/18 04:50 MCV 92.3 fl (80.0-94.0) 11/27/18 04:50 MCH 31.0 pg (27.0-31.0) 11/27/18 04:50 MCHC 33.5 g/dL (33.0-37.0) 11/27/18 04:50 RDW 14.1 % (11.5-14.5) 11/27/18 04:50 Plt Count 142 K/uL (130-400) 11/27/18 04:50 MPV 9.9 fl (7.2-11.7) 11/25/18 04:30 Neut % (Auto) 41.0 % (50.0-75.0) L 11/25/18 04:30 Lymph % (Auto) 49.1 % (20.0-40.0) H 11/25/18 04:30 Eagle % (Auto) 8.3 % (0.0-10.0) 11/25/18 04:30 Eos % (Auto) 1.1 % (0.0-4.0) 11/25/18 04:30 Baso % (Auto) 0.5 % (0.0-2.0) 11/25/18 04:30 Neut # (Auto) 3.1 K/uL (1.8-7.0) 11/25/18 04:30 Lymph # (Auto) 3.7 K/uL (1.0-4.3) 11/25/18 04:30 Eagle # (Auto) 0.6 K/uL (0.0-0.8) 11/25/18 04:30 Eos # (Auto) 0.1 K/uL (0.0-0.7) 11/25/18 04:30 Baso # (Auto) 0.0 K/uL (0.0-0.2) 11/25/18 04:30 PT 10.2 Seconds (9.8-13.1) 11/24/18 18:47 INR 0.9 11/24/18 18:47 APTT 32.9 Seconds (25.6-37.1) 11/24/18 18:47 pO2 37 mm/Hg (30-55) 11/24/18 18:42 VBG pH 7.41 (7.32-7.43) 11/24/18 18:42 VBG pCO2 42 mmHg (40-60) 11/24/18 18:42 VBG HCO3 25.5 mmol/L 11/24/18 18:42 VBG Total CO2 27.9 mmol/L (22-28) 11/24/18 18:42 VBG O2 Sat (Calc) 78.4 % (40-65) H 11/24/18 18:42 VBG Base Excess 1.7 mmol/L (0.0-2.0) 11/24/18 18:42 VBG Potassium 4.2 mmol/L (3.6-5.2) 11/24/18 18:42 Sodium 138.0 mmol/L (132-148) 11/24/18 18:42 Chloride 107.0 mmol/L (98-107) 11/24/18 18:42 Glucose 101 mg/dL (75-110) 11/24/18 18:42 Lactate 0.9 mmol/L (0.7-2.1) 11/24/18 18:42 FiO2 21.0 % 11/24/18 18:42 Sodium 138 mmol/l (132-148) 11/27/18 04:50 Potassium 4.2 MMOL/L (3.6-5.0) 11/27/18 04:50 Chloride 105 mmol/L (98-107) 11/27/18 04:50 Carbon Dioxide 27 mmol/L (22-30) 11/27/18 04:50 Anion Gap 10 (10-20) 11/27/18 04:50 BUN 14 mg/dl (9-20) 11/27/18 04:50 Creatinine 0.8 mg/dl (0.8-1.5) 11/27/18 04:50 Est GFR ( Amer) > 60 11/27/18 04:50 Est GFR (Non-Af Amer) > 60 11/27/18 04:50 Random Glucose 94 mg/dL (75-110) 11/27/18 04:50 Calcium 9.2 mg/dL (8.4-10.2) 11/27/18 04:50 Phosphorus 3.4 mg/dl (2.5-4.5) 11/25/18 04:30 Magnesium 2.2 MG/DL (1.6-2.3) 11/26/18 05:00 Total Bilirubin 0.4 mg/dl (0.2-1.3) 11/27/18 04:50 AST 20 U/L (17-59) 11/27/18 04:50 ALT 27 U/L (21-72) 11/27/18 04:50 Alkaline Phosphatase 47 U/L (38-126) 11/27/18 04:50 Troponin I < 0.0120 ng/mL (0.00-0.120) 11/25/18 21:18 Total Protein 6.8 G/DL (6.3-8.2) 11/27/18 04:50 Albumin 3.9 g/dL (3.5-5.0) 11/27/18 04:50 Globulin 2.8 gm/dL (2.2-3.9) 11/27/18 04:50 Albumin/Globulin Ratio 1.4 (1.0-2.1) 11/27/18 04:50 Triglycerides 101 mg/DL (0-149) 11/25/18 04:30 Cholesterol 155 mg/dL (0-199) 11/25/18 04:30 LDL Cholesterol Direct 98 mg/dL (0-129) 11/25/18 04:30 HDL Cholesterol 42 MG/DL (30-70) 11/25/18 04:30 Vitamin B12 398 pg/mL (239-931) 11/25/18 04:30 TSH 3rd Generation 3.18 mIU/ML (0.46-4.68) 11/25/18 04:30 Venous Blood Potassium 4.2 mmol/L (3.6-5.2) 11/24/18 18:42 - Hospital Course Hospital Course: 63 y/o M with PMH of Anxiety and HTN (untreated) admitted for eval and treatment of recurrent chest pain and ventricular bigeminy. After admission, Cardiology was consulted, ACS ruled out, s/p Echo 11/25/18: EF 40-45% and abnormal Pefusion scan. Patient was taken to cardiac cath on 11/27: No CAD. Patient is currently asymptomatic, cleared by cardiology and primary team to discharge home with New medications and instructions to follow up with PMD and Cardiology in 1 week. Patient denies any chest pain/palpitations/SOB/dizziness or weakness, ambulating and tolerating PO intake. Medications: Lisinopril 2.5 daily and Metoprolol T 12.5, Q12H Discharge Exam - Head Exam Head Exam: ATRAUMATIC, NORMAL INSPECTION, NORMOCEPHALIC - Eye Exam Eye Exam: EOMI, Normal appearance, PERRL Pupil Exam: NORMAL ACCOMODATION - ENT Exam ENT Exam: Mucous Membranes Moist - Neck Exam Neck exam: Normal Inspection - Respiratory Exam Respiratory Exam: Clear to PA & Lateral, NORMAL BREATHING PATTERN. absent: Decreased Breath Sounds, Wheezes, Respiratory Distress - Cardiovascular Exam Cardiovascular Exam: REGULAR RHYTHM, RRR, +S1, +S2. absent: Bradycardia, Tachycardia - GI/Abdominal Exam GI & Abdominal Exam: Normal Bowel Sounds, Soft. absent: Guarding, Rebound, Tenderness - Extremities Exam Extremities exam: full ROM, normal inspection - Back Exam Back exam: NORMAL INSPECTION. absent: CVA tenderness (L), CVA tenderness (R) - Neurological Exam Neurological exam: Alert, CN II-XII Intact, Normal Gait, Oriented x3, Reflexes Normal - Psychiatric Exam Psychiatric exam: Normal Affect - Skin Skin Exam: Dry, Intact, Normal Color, Warm Discharge Plan - Discharge Medications Prescriptions: Lisinopril [Zestril] 2.5 mg PO DAILY 30 Days #30 tab Metoprolol Tartrate [Lopressor] 12.5 mg PO Q12 30 Days #60 tab - Follow Up Plan Condition: FAIR Disposition: HOME/ ROUTINE Instructions: Arrhythmias, DASH Diet, High Blood Pressure (DC), Alcohol Abuse a nd Alcoholism (DC), Cardiomyopathy (DC) Additional Instructions: follow up with in 1 week follow up with Dr. Branch in 1 week Referrals: Gabe Branch MD [Staff Provider] - Alena Castillo MD [Resident] - Nery Abraham MD [Staff Provider] -
[2018-11-28 09:38] VITALS: PULSE 66
== END 2018-11-28 11:26 | disposition home or self-care (01) | DRG 287 ==
LOC: H.ER 17:48 → H.ERHOLD 19:53 → H.TEL 21:30 → OBSVTOIN 11-26 15:33
PROVIDERS: ADMIT Internal Medicine; ATTEND Internal Medicine
PROC: 4A023N7 Measurement of Cardiac Sampling and Pressure, Left Heart, Percutaneous Approach (ICD-10-PCS; principal; 2018-11-27)
PROC: B215YZZ Fluoroscopy of Left Heart using Other Contrast (ICD-10-PCS; 2018-11-27)
PROC: B41FZZZ Fluoroscopy of Right Lower Extremity Arteries (ICD-10-PCS; 2018-11-27)
DX: I42.0 Dilated cardiomyopathy (principal); I10 Essential (primary) hypertension; Z82.49 Family history of ischemic heart disease and other diseases of the circulatory system; F41.9 Anxiety disorder, unspecified; R00.8 Other abnormalities of heart beat; Z72.0 Tobacco use; F10.10 Alcohol abuse, uncomplicated; R07.9 Chest pain, unspecified; I49.9 Cardiac arrhythmia, unspecified; Y90.9 Presence of alcohol in blood, level not specified